=== PATIENT | female | born 1950 | race Two or more races ===

== ENCOUNTER 2017-06-24 17:36 | Emergency (ER) | payer OTHER ==
--- NOTE | 2017-06-24 17:49 | EDPHY ---
H & P Stated Complaint: SHANE Source: Patient, Lead Software Developer Exam Limitations: Language barrier - Personal History Current Tetanus/Diphtheria Vaccine: Yes Current Tetanus Diphtheria and Acellular Pertussis (TDAP): Yes - Medical/Surgical History Hx Asthma: No Hx Chronic Respiratory Disease: No Hx Diabetes: Yes Hx Cardiac Disease: No Hx Renal Disease: No Hx Cirrhosis: No Hx Alcoholism: No Hx HIV/AIDS: No Hx Splenectomy or Spleen Trauma: No Other PMH: DM, HTN, hyperlipidemia, - Social History Smoking Status: Never smoked Time Seen by Provider: 06/24/17 17:48 HPI/ROS: HPI: This is a 66-year-old female who presents with Chief Complaint: Headache, right eye pain Location: Right eye Quality: Redness Duration: Upon waking up this morning Signs and Symptoms: no fever, no nausea, no vomiting, +o photophobia, no noise sensitivity, no neck stiffness, no ear pain, no tinnitus, no nasal congestion, no sinus pressure, no weakness, no radiation, no aura, no trauma, no ocular discharge, no eye pain Timing: Acute, constant Severity: Mild Context: Patient was sent from urgent care with complaints of waking up this morning with a red right eye with unknown trauma and no ocular discharge/ eyelash matting/ocular pain accompanied by frontal, constant, stabbing like headache that is the worst of her life. She reports she took ibuprofen with no relief. Denies any upper respiratory symptoms including no nasal congestion/ sinus pressure/ear pain/neck stiffness/fever. Took blood pressure medications this morning for history of hypertension. Eating and drinking normally. No history of migraine headaches. Does note some photophobia but denies aura or noise sensitivity. spanish interpreter/translator used. Modifying Factors: Ibuprofen no relief Comment: ROS: see HPI Constitutional: No fever, no chills, no weight loss Eyes: No blurred vision Respiratory: No shortness of breath, no cough Cardiovascular: No chest pain, no palpitations Gastrointestinal: No nausea, no vomiting, no diarrhea, no hematemesis, no blood in stool Genitourinary: No dysuria, no blood in urine Extremities: No myalgias, no edema Neurologic: No weakness, no numbness Skin: No rashes, no petechiae Hematologic: No bruising, no bleeding MEDICAL/SURGICAL/SOCIAL HISTORY: Medical history: DM, HTN, hyperlipidemia Surgical history: Denies Social history: Family history noncontributory. CONSTITUTIONAL: Extremely well-appearing elderly female, awake and alert, no obvious distress HEENT: Atraumatic and normocephalic, Nares patent; no rhinorrhea; no nasal mucosal edema. Tympanic membranes clear. Oropharynx clear, no exudate and moist pink mucosa. Airway patent. No lymphadenopathy. No meningismus. Eyes: Visual Acuity: noted from Nurse's notes. Intra-ocular pressure: left: 20, 18, 18. right: 17, 20, 17. Pupils: equal round and reactive to light, EOMI. Lids: no edema or swelling Skin: no proptosis, no periorbital erythema or swelling, no vesicles Conjunctivae: Red blood noted on white sclerae area with clear borders. no discharge] Cornea: exam with fluorescein shows with no uptake Anterior chamber: normal, no hyphema or hypopyon Cardiovascular: Normal S1/S2, regular rate, regular rhythm, without murmur rub or gallop. PULMONARY/CHEST: Symmetrical and nontender. Clear to auscultation bilaterally. Good air movement. No accessory muscle usage. ABDOMEN: Soft, nondistended, nontender, no rebound, no guarding, no peritoneal signs, no masses or organomegaly. No CVAT. EXTREMITIES: 2/2 pulses, strength 5/5, no deformities, no clubbing, no cyanosis or edema. NEUROLOGICAL: no focal neuro deficits. GCS 15. SKIN: Warm and dry, no erythema. no rash. Good capillary refill. (Edwina Mackay) Constitutional: Initial Vital Signs Temperature (C) 36.6 C 06/24/17 17:42 Heart Rate 61 06/24/17 17:42 Respiratory Rate 16 06/24/17 17:42 Blood Pressure 160/90 H 06/24/17 17:42 O2 Sat (%) 96 06/24/17 17:42 O2 Delivery Mode Room Air Allergies/Adverse Reactions: No Known Allergies Allergy (Unverified 06/24/17 17:39) Home Medications: Medication Instructions Recorded Aspirin 06/24/17 Atorvastatin Calcium 06/24/17 Azithromycin [Zithromax] 250 mg PO DAILY #6 tab 06/24/17 Levocetirizine Dihydrochloride 5 mg PO DAILY #14 tablet 06/24/17 [Xyzal] Lisinopril 06/24/17 Metformin HCl 06/24/17 novoLOG 06/24/17 Medical Decision Making - Diagnostics Imaging Results: Imaging Impressions Head CT 06/24/17 00:00 Impression: 1. No significant intracranial abnormality seen. 2. Mild ethmoid and maxillary sinus disease. If symptoms worsen, additional imaging may be necessary. Findings discussed with Burton Salmon MD at 19:04 hour, 06/24/2017. ED Course/Re-evaluation: Blood pressure upon arrival 160/90 Eye exam shows exam consistent was subconjunctival hemorrhage. Intra-ocular pressures are within normal limits. Labs and head CT scan ordered as new onset headache, history of hypertension, age greater than or equal to 65 years old; described as worst headache of life. Labs reviewed. No signs of leukocytosis/anemia/YONG/electrolyte imbalance/ coagulopathy. Dr. Salmon called by radiologist who advised that head CT scan shows no acute intracranial process. + ethmoid and maxillary sinusitis. Reassessed patient reports complete relief of headache. Reports that she has nasal dryness and uses saline nasal drops at night with transient relief. With prescription for azithromycin advised [id number] antihistamines provided. This patient was seen under the supervision of my secondary supervising physician. I evaluated care for this patient independently. Discussed this patient with Dr. Salmon who did not see the patient. (Edwina Mackay) I evaluated this patient and discussed the physical findings, history, laboratory studies with the [facility] physician and also with Edwina Mackay. I also evaluated the patient. This patient's headaches completely resolved. She may have a mild sinusitis and she certainly has a subconjunctival hemorrhage. CT scan is unremarkable. We discussed the utility of a spinal tap on this patient not need 1. There is no evidence of infection. Patient also does not want 1. The headache started this morning so the CT scan is significantly sensitive for subarachnoid. (Burton Salmon) Differential Diagnosis: Headache including but not limited to subarachnoid hemorrhage, migraine headache , tension headache and infectious causes such as meningitis, pharyngitis and sinusitis. (Edwina Mackay) - Data Points Laboratory Results: Laboratory Results 06/24/17 18:40 06/24/17 18:40 06/24/17 06/24/17 06/24/17 18:40 18:40 18:40 WBC 8.74 10^3/uL 10^3/uL (3.80-9.50) RBC 4.35 10^6/uL 10^6/uL (4.18-5.33) Hgb 11.9 g/dL L g/dL (12.6-16.3) Hct 36.0 % L % (38.0-47.0) MCV 82.8 fL fL (81.5-99.8) MCH 27.4 pg L pg (27.9-34.1) MCHC 33.1 g/dL g/dL (32.4-36.7) RDW 12.6 % % (11.5-15.2) Plt Count 300 10^3/uL 10^3/uL (150-400) MPV 9.0 fL fL (8.7-11.7) Neut % (Auto) 45.6 % % (39.3-74.2) Lymph % (Auto) 46.2 % H % (15.0-45.0) Mckenzie % (Auto) 5.6 % % (4.5-13.0) Eos % (Auto) 1.7 % % (0.6-7.6) Baso % (Auto) 0.8 % % (0.3-1.7) Nucleat RBC Rel Count 0.0 % % (0.0-0.2) Absolute Neuts (auto) 3.98 10^3/uL 10^3/uL (1.70-6.50) Absolute Lymphs (auto) 4.04 10^3/uL H 10^3/uL (1.00-3.00) Absolute Monos (auto) 0.49 10^3/uL 10^3/uL (0.30-0.80) Absolute Eos (auto) 0.15 10^3/uL 10^3/uL (0.03-0.40) Absolute Basos (auto) 0.07 10^3/uL 10^3/uL (0.02-0.10) Absolute Nucleated RBC 0.00 10^3/uL 10^3/uL (0-0.01) Immature Gran % 0.1 % % (0.0-1.1) Immature Gran # 0.01 10^3/uL 10^3/uL (0.00-0.10) PT 12.9 SEC SEC (12.0-15.0) INR 0.95 (0.83-1.16) APTT 30.9 SEC SEC (23.0-38.0) Sodium 133 mEq/L L mEq/L (135-145) Potassium 4.5 mEq/L mEq/L (3.5-5.2) Chloride 98 mEq/L mEq/L (97-110) Carbon Dioxide 23 mEq/l mEq/l (22-31) Anion Gap 12 mEq/L mEq/L (8-16) BUN 12 mg/dL mg/dL (7-23) Creatinine 0.5 mg/dL L mg/dL (0.6-1.0) Estimated GFR > 60 Glucose 83 mg/dL mg/dL (70-100) Calcium 9.7 mg/dL mg/dL (8.5-10.4) Medications Given: Discontinued Medications Dexamethasone (Decadron Injection) 10 mg IVP EDNOW ONE Stop: 06/24/17 18:17 Last Admin: 06/24/17 18:35 Dose: 10 mg Diphenhydramine HCl (Benadryl Injection) 25 mg IVP EDNOW ONE Stop: 06/24/17 18:17 Last Admin: 06/24/17 18:35 Dose: 25 mg Metoclopramide HCl (Reglan Injection) 10 mg IVP EDNOW ONE Stop: 06/24/17 18:17 Last Admin: 06/24/17 18:35 Dose: 10 mg Departure - Departure Disposition: Home, Routine, Self-Care Clinical Impression: Non-traumatic subconjunctival hemorrhage of right eye Maxillary sinusitis Qualifiers: Chronicity: acute Recurrence: not specified as recurrent Qualified Code(s): J01.00 - Acute maxillary sinusitis, unspecified Condition: Good Instructions: Sinusitis (ED), Subconjunctival Hemorrhage (ED) Additional Instructions: Apply cool compress to right eye times 24 hr and then switch to warm compresses for 1-2 days as needed for right eye discomfort. Take Xyzal daily for allergic rhinitis. Take azithromycin as directed until complete for sinus infection. Take Tylenol 650 mg every 4 hr and/or ibuprofen 600 mg every 8 hr as needed for headache, pain. Referrals: Ashley Alberto MD [Primary Care Provider] - As per Instructions Prescriptions: Azithromycin [Zithromax] 250 mg PO DAILY #6 tab Levocetirizine Dihydrochloride [Xyzal] 5 mg PO DAILY #14 tablet
[2017-06-24] MEDS ORDERED: PROPARACAINE 0.5% 15 ML OPHT DROP ONE (17:53)
[2017-06-24] MEDS ORDERED: FLUORESCEIN SODIUM 1 MG STRIP OP ONE (17:53)
[2017-06-24] MEDS ORDERED: METOCLOPRAMIDE 10 MG/2 ML VIAL IVP ONE (18:16)
[2017-06-24] MEDS ORDERED: DEXAMETHASONE 10 MG/ML VIAL IVP ONE (18:16)
[2017-06-24 18:48] LABS: PLATELET COUNT 300 10^3/uL (150-400)
[2017-06-24 19:00] LABS: INR 0.95 (0.83-1.16); PROTIME(PATIENT) 12.9 SEC (12.0-15.0)
[2017-06-24 19:34] VITALS: BP 156/63
== END 2017-06-24 19:43 | disposition home or self-care (01) ==
DX: J01.00 Acute maxillary sinusitis, unspecified (principal); H11.31 Conjunctival hemorrhage, right eye; E11.9 Type 2 diabetes mellitus without complications; I10 Essential (primary) hypertension; Z79.4 Long term (current) use of insulin; Z79.82 Long term (current) use of aspirin
CPT/HCPCS: 96374; J1100; J1200; J2765